=== PATIENT | male | born 1945 | race Caucasian/White ===

== ENCOUNTER 2017-09-03 13:34 | Outpatient (RCR) | payer OTHER, SELFPAY | END 2017-09-03 13:35 | disposition home or self-care (01) | LOC: PT 13:34 | PROVIDERS: Visit Provider Internal Medicine Critical Care Medicine | DX: J44.9 Chronic obstructive pulmonary disease, unspecified (principal) | CPT/HCPCS: G0237; G0238; G0424 ==

== ENCOUNTER 2018-09-03 17:00 | Outpatient (RCR) | payer MEDICARE, SELFPAY | END 2018-09-03 17:05 | disposition home or self-care (01) | LOC: PT 17:00 | PROVIDERS: Referring Provider Family Medicine; Visit Provider Family Medicine | DX: L89.319 Pressure ulcer of right buttock, unspecified stage (principal); L89.329 Pressure ulcer of left buttock, unspecified stage | CPT/HCPCS: 97161; 97597 ==